=== PATIENT | male | born 1965 | race Caucasian/White ===

== ENCOUNTER → 2019-02-14 | Outpatient (CLI) | payer BC ==
--- NOTE | 2019-02-14 10:25 | CT ---
EXAMINATION TYPE: CT abdomen wo con DATE OF EXAM: 02/14/2019 COMPARISON: None HISTORY: Abnormal labwork, K 85.90. Possible pancreatitis per patient CT DLP: 771.1 mGycm Automated exposure control for dose reduction was used. TECHNIQUE: Helical acquisition of images was performed from the lung bases through the top of iliac crest to include entire abdomen. CONTRAST: Performed without Oral Contrast and without IV contrast. FINDINGS: Lack of contrast could compromise sensitivity. LUNG BASES: No significant abnormality is appreciated. LIVER/GB: Liver shows low attenuation possibly due to hepatic steatosis, liver is enlarged and there is some punctate calcifications present. Liver shows a slightly nodular contour. Gallbladder is not s een. PANCREAS: No significant abnormality is seen. SPLEEN: No significant abnormality is seen. ADRENALS: No significant abnormality is seen. KIDNEYS: No significant abnormality is seen. BOWEL: No significant abnormality is seen. LYMPH NODES: No significan abnormality is appreciated. OSSEOUS STRUCTURES: Degenerative disc changes are present in the visualized spine, there is a spinal curvature. Multilevel vacuum phenomenon, foraminal encroachment present at intervertebral levels.. FREE AIR: No Free Air visible ASCITES: None visible. RETROPERITONEAL ADENOPATHY: No Retroperitoneal Adenopathy visible. OTHER: IMPRESSION: HEPATIC STEATOSIS, HEPATOMEGALY, CORRELATE FOR POSSIBLE CIRRHOSIS. POSTCHOLECYSTECTOMY. LACK OF CONTR AST COULD COMPROMISE SENSITIVITY OF THE EXAM.
== END | disposition home or self-care (01) ==
LOC: RADCTMAIN 09:42
PROVIDERS: ATTEND Nurse Practitioner Adult Health
DX: K76.0 Fatty (change of) liver, not elsewhere classified (principal); R16.0 Hepatomegaly, not elsewhere classified; Z90.49 Acquired absence of other specified parts of digestive tract
CPT/HCPCS: 74150

== ENCOUNTER → 2021-09-13 | Outpatient (CLI) | payer BC ==
--- NOTE | 2021-09-13 18:00 | ECHOF ---
Referral Reason:R01.1 cardiacmurmur MEASUREMENTS -------- HEIGHT: 182.9 cm WEIGHT: 108.9 kg BP: RVIDd: 3.0 cm (< 3.3) IVSd: 1.0 cm (0.6 - 1.1) LVIDd: 5.2 cm (3.9 - 5.3) LVPWd: 1.3 cm (0.6 - 1.1) IVSs: 1.3 cm LVIDs: 3.5 cm LVPWs: 2.0 cm LAESV Index (A-L): 15.66 ml/m Ao Diam: 2.7 cm (2.0 - 3.7) AV Cusp: 2.0 cm (1.5 - 2.6) LA Diam: 3.9 cm (2.7 - 3.8) MV EXCURSION: 20.536 mm (> 18.000) MV EF SLOPE: 67 mm/s (70 - 150) EPSS: 0.2 cm MV E Pravin: 0.49 m/s MV DecT: 283 ms MV A Pravin: 0.77 m/s MV E/A Ratio: 0.64 RAP: 5.00 mmHg RVSP: 19.39 mmHg FINDINGS -------- BBB This was a technically good study. LV size, wall thickness and systolic function are normal, with an EF greater than 55%. The left jeffery tricular size is normal. The right ventricle is normal in size. The left atrial size is normal. The right atrial size is normal. There is mild aortic valve sclerosis. There is no evidence of aortic regurgitation. Mild mitral regurgitation is present. Mild tricuspid regurgitation present. Right ventricular systolic pressure is normal at < 35 mmHg. There is no pulmonic regurgitation present. There is no pericardial effusion. CONCLUSIONS -------- 1. LV size, wall thickness and systolic function are normal, with an EF greater than 55%. 2. The left ventricular size is normal. 3. The right ventricle is normal in size. 4. The left atrial size is normal. 5. The right atrial size is normal. 6. There is mild aortic valve sclerosis. 7. Mild mitral regurgitation is present. 8. Mild tricuspid regurgitation present. 9. There is no pericardial effusion. ETL INFORMATICA ARCHITECT: Aury Alfonso RDCS
== END | disposition home or self-care (01) ==
LOC: RADECHMAIN 13:41
PROVIDERS: ATTEND Family Medicine
DX: I35.8 Other nonrheumatic aortic valve disorders (principal)
CPT/HCPCS: 93306